=== PATIENT | female | born 2000 | race African-American/Black ===

== ENCOUNTER 2024-11-12 19:05 | Emergency (ER) | payer SELFPAY ==
[2024-11-12 19:10] VITALS: BP 150/101
[2024-11-12 19:23] VITALS: BMI 30.1
--- NOTE | 2024-11-12 19:30 | ED.GENMED ---
History of Present Illness
General
Chief Complaint: Change in Mental Status
Source: patient and family day care provider
Exam Limitations: none
Time Seen by Provider: 11/12/24 19:24
History of Present Illness
History of Present Illness:
See MDM
Past History
Past History
ED Past Medical History: Psychiatric
ED Past Surgical History: None
Social History
Tobacco: Non-smoker
Alcohol: None
Phy Exam
Physical Exam
Physical Exam:
See MDM
Course
Orders/Labs/Results
Orders:
Orders
11/12/24 19:30
CT Head W/o Iv Contrast Urgent
Comment:
Reason For Exam: altered
Acetaminophen [Tylenol] 650 mg PO NOW STA
Test Result ONCE
11/12/24 19:46
Complete Blood Count/With Diff Urgent
Comprehensive Metabolic Panel Urgent
HCG, Serum Qualitative Screen Urgent
11/12/24 20:40
Urinalysis Reflex To Culture Urgent
Date Specimen was Collected: 11/12/24
Time Specimen was Collected: 19:32
Urine Drug Abuse Screen Urgent
Date Specimen was Collected: 11/12/24
Time Specimen was Collected: 19:32
Abnormal Lab Results
11/12/24 11/12/24
19:46 20:40
WBC 12.1 H 10^3/uL
(4.8-10.8)
MCH 26.8 L pg
(27.0-31.0)
MCHC 32.3 L g/dL
(33.0-37.0)
RDW 15.9 H %
(11.5-14.5)
Plt Count 412 H 10^3/uL
(130-400)
Absolute Neuts (auto) 9.7 H 10^3/uL
(1.4-6.5)
Neutrophils % 80.7 H %
(42.2-75.2)
Lymphocytes % 14.9 L %
(20.5-51.1)
Carbon Dioxide 19 L mmol/L
(22-30)
Glucose 112 H mg/dl
(70-99)
Urine Ketones 1+ A
(Negative)
11/12/24 19:46
11/12/24 19:46
Vital Signs
Initial and Last Documented VS:
Initial Vital Signs
Temp Pulse Resp BP Pulse Ox
97.8 F 95 16 150/101 99
11/12/24 19:10 11/12/24 19:10 11/12/24 19:10 11/12/24 19:10 11/12/24 19:10
Last Documented Vital Signs
Temp Pulse Resp BP Pulse Ox
97.8 F 95 16 150/101 99
11/12/24 19:10 11/12/24 19:10 11/12/24 19:10 11/12/24 19:10 11/12/24 19:10
MDM/Problems Addressed
Differential Diagnosis Includes:
HPI and MDM Narrative:
24-year-old female presenting for evaluation of abnormal behavior. She was just at [facility] and was transferred to a psychiatric facility. While outside with the caregiver, she became what appears to be catatonic. They were worried about
the sudden onset in change of behavior. On arrival, patient is tearful and alert. The caregiver does acknowledge that she is much better than she was earlier
I discussed with the caregiver and patient that I have low concern for any metabolic abnormality or medical reason for her altered mental status. We discussed this is likely part of her mental health history. Regardless, will obtain basic blood
work, urine and UDS and CT head to look for significant abnormalities. Patient states she wants Tylenol for headache but declines any other medicines. She is currently tearful but calm and cooperative. She has no focal deficits and appears to
comprehend
Physical exam
General: Well appearing and non-toxic. Sitting in bed comfortably
HEENT: protecting airway
Neck: appears supple
CV: No evidence of cyanosis
Resp: No accessory muscle use
Abd: Non-distended
Extremities: No deformities
Neuro: Awake and alert. Moving all 4 extremities.
Psych: Tearful and appears mildly paranoid
Skin: Intact
Problems Addressed including Acute and Chronic Conditions affecting care:
1. Altered mental status
Acuity: acute
Prognosis: stable
Details: Given the sudden onset of mental status change and the sudden onset of it resolving, discussed with patient and caregiver that this is likely in the setting of mental health. Will obtain medical workup for medical clearance so that she may
return back to psychiatric facility where she can get appropriate psychiatric care
Updates
From blood work, CT head and UDS, patient medically cleared
Differential Diagnosis (but not limited to): Psychosis, metabolic abnormality, drug ingestion
Testing considered: Blood cultures but she is not febrile
Drug therapy (if applicable): OTC meds, please see d/c instruction regarding Rx drugs
Amount and/or Complexity of Data Reviewed
Clinical info obtained from: Patient
External data reviewed: N/A
Labs I independently reviewed (but not limited to): UDS negative
Radiology: The CT scan was personally and independently reviewed. In addition, official CT report reviewed.
Pulse Ox: not hypoxic
EKG independently reviewed: N/A
Rough Patcher: N/A
Critical Care: N/A
Risk of Complication:
Social Determinants of health: Good social support
Discussed with other providers: N/A
Escalation of Care includes Admit/Obs: After being observed in the Emergency Department, pt stable for discharge.
Occasional wrong word or 'sound a like' substitutions may have occurred due to the inherent limitations of voice recognition software. Read the chart carefully and recognize, using context, where substitutions have occurred.
*Critical Care Note
Total Time (30-74mins, 75-104mins- exclusive of procedures): Not Applicable
ED Attending Note
-
Portions of this chart may have been created with voice recognition software.� Occasional wrong word or��sound alike� substitutions may have occurred due to the inherent limitations of voice recognition software.
Discharge Plan
Departure
Patient Disposition: Home (Routine Discharge)
Date of Disposition: 11/12/24
Time of Disposition: 21:47
Patient with high blood pressure during this ER visit?: Yes
Discharge Problem:
Altered behavior
Referrals:
NONE,* [Family Provider] -
Activity Restrictions/Additional Instructions:
There was no significant abnormality noted on the urine drug screen, blood work or CT head.
Please return for worsening symptoms
Interventions
Interventions:
*General Assessment Last Done: 11/12/24 19:26
*Neglect/Abuse Screening Last Done: 11/12/24 19:26
Discharge Date and Time
Print Language: SLOVAK
[2024-11-12] MEDS: TYLENOL 650 MG PO (19:39)
[2024-11-12 19:59] LABS: % Basophils 0.2 % (0-2); % Eosinophils 0.1 % (0-6); % Immature Granulocytes 0.3 % (0-0.5); % Lymphocytes 14.9 % (20.5-51.1); % Monocytes 3.8 % (1.7-9.3); % Neutrophils 80.7 % (42.2-75.2); Absolute Lymphocytes 1.8 10^3/uL (1.2-3.4); Absolute Monocytes 0.5 10^3/uL (0.1-0.6); Absolute Neutrophils 9.7 10^3/uL (1.4-6.5); Hematocrit 40.9 % (37.0-47.0); Hemoglobin 13.2 g/dL (12.0-16.0); Mean Corp Hgb Conc. 32.3 g/dL (33.0-37.0); Mean Corpuscular Hgb 26.8 pg (27.0-31.0); Mean Platelet Volume 9.2 fL (7.4-10.4); Nucleated Red Blood Cells % 0 %; Platelet Count 412 10^3/uL (130-400); Red Blood Cell Count 4.93 10^6/uL (4.20-5.40); Red Cell Dist. Width 15.9 % (11.5-14.5); White Blood Cell Count 12.1 10^3/uL (4.8-10.8)
[2024-11-12 20:10] LABS: HCG, Serum Qualitative Screen Negative
[2024-11-12 20:14] LABS: ALT (SGPT) 13 U/L (0-35); AST (SGOT) 21 U/L (14-36); Albumin 4.9 g/dl (3.5-5.0); Alkaline Phosphatase 109 U/L (38-126); Blood Urea Nitrogen 8 mg/dl (7-17); Calcium 9.5 mg/dl (8.4-10.2); Carbon Dioxide 19 mmol/L (22-30); Chloride 102 mmol/L (98-107); Estimated Creatinine Clearance 124 ml/min; Glucose 112 mg/dl (70-99); Potassium 3.9 mmol/L (3.5-5.1); Sodium 135 mmol/L (135-145); Total Bilirubin 0.5 mg/dl (0.2-1.3); Total Protein 7.8 g/dl (6.3-8.2); eGFR > 60.00
[2024-11-12 20:49] LABS: Urine Albumin Negative (Neg - Trace); Urine Bilirubin Negative (Negative); Urine Character Clear (Clear); Urine Color Yellow; Urine Glucose Negative (Negative); Urine Ketone 1+ (Negative); Urine Leukocyte Negative (Negative); Urine Nitrite Negative (Negative); Urine Occult Blood Negative (Negative); Urine Urobilinogen Negative (Neg - 1+)
[2024-11-12 21:42] LABS: Amphetamines Negative (Negative); Barbiturates Negative (Negative); Benzodiazepines Negative (Negative); Buprenorphine Negative (Negative); Cocaine Negative (Negative); Marijuana Negative (Negative); Methadone Negative (Negative); Methamphetamines Negative (Negative); Opiates Negative (Negative); Phencyclidine Negative (Negative); Tricyclic Antidepressants Negative (Negative)
== END 2024-11-13 01:15 | disposition home or self-care (01) ==
LOC: EMR 19:05
PROVIDERS: EMERGENCY PHYSICIAN Student in an Organized Health Care Education/Training Program
DX: R40.4 Transient alteration of awareness (principal); R03.0 Elevated blood-pressure reading, without diagnosis of hypertension
CPT/HCPCS: 99284; 70450; 80053; 80306; 81003; 84703; 85025